=== PATIENT | female | born 1955 | race Caucasian/White ===

== ENCOUNTER 2016-12-07 17:46 | Emergency (ER) | payer SELFPAY ==
[~2016-12-07] VITALS: Ht 167.6 cm; Wt 101.5 kg
[2016-12-07 17:58] VITALS: Ht 167.6 cm; Wt 101.5 kg
[2016-12-07 20:10] VITALS: PULSE 95; RESP 20
== END 2016-12-07 21:33 | disposition left against medical advice (07) ==
LOC: E/R 17:46
DX: Z53.21 Procedure and treatment not carried out due to patient leaving prior to being seen by health care provider (principal)